=== PATIENT | male | born 1985 | race Caucasian/White ===

== ENCOUNTER → 2022-07-15 10:21 | Outpatient (CLI) | payer OTHER, SELFPAY | DX: R53.1 Weakness (principal) | CPT/HCPCS: 95886; 95910 ==

== ENCOUNTER → 2022-11-25 08:41 | Outpatient (CLI) | payer OTHER, SELFPAY ==
--- NOTE | 2022-11-25 | DI.MRI.S_ITS ---
PROCEDURE: MR ANKLE RT WO CON INDICATIONS: Pain in right ankle and joints of right foot TECHNIQUE: Noncontrast sagittal T1 spin echo and T2 fast spin echo with fat saturation, axial proton density fast spin echo and T2 fast spin echo with fat saturation, coronal T1 spin echo and T2 fast spin echo with fat saturation through the ankle/hindfoot. COMPARISON: None. FINDINGS: Image quality: Excellent. Bones and joints: No bone marrow contusions or fractures. No hindfoot coalitions. No osteochondral injuries of the talar dome. No pathologic joint effusions. There is some moderate thickening of the peroneus longus tendon at the lateral malleolus with some increased signal present consistent with some moderate tendinopathy. There is also some mild to moderate tenosynovitis involving the peroneus brevis and longus tendons. Remaining ankle ligaments and tendons appear intact. Anterior structures: The tibialis anterior, extensor hallucis longus, and extensor digitorum longus tendons appear intact. The dorsal talonavicular ligament appears intact. Posterior and plantar structures: Achilles tendon is intact. Medial and lateral bands of the plantar fascia are of normal thickness. No abductor digiti quinti muscle atrophy to suggest French neuropathy. IMPRESSION: 1. Moderate thickening and increased signal within the peroneus brevis tendon at the lateral malleolus most consistent with tendinopathy. 2. Mild to moderate tenosynovitis involving brevis and longus tendons. 3. There is some [id number] nonspecific edema in the subcutaneous tissues of the lateral foot adjacent to the 5th metatarsal incompletely visualized of uncertain clinical significance. Dictated by: Jay Esparza M.D. on 11/25/2022 at 11:00 Approved by: Jay Esparza M.D. on 11/25/2022 at 11:10
== END ==
PROVIDERS: Referring Provider Podiatrist; Visit Provider Podiatrist
DX: M25.371 Other instability, right ankle (principal); M65.871 Other synovitis and tenosynovitis, right ankle and foot; M25.571 Pain in right ankle and joints of right foot
CPT/HCPCS: 73721

== ENCOUNTER → 2023-10-28 11:44 | Outpatient (CLI) | payer OTHER, SELFPAY ==
--- NOTE | 2023-10-28 11:47 | DI.RAD.S_ITS ---
PROCEDURE: XR CHEST 2V INDICATIONS: CHEST PAIN TECHNIQUE: 2 views of the chest were acquired. COMPARISON: None. FINDINGS: Surgical changes and devices: None. Lungs and pleura: Lungs are clear. No pleural effusions or pneumothorax. Mediastinum: Mediastinal contours are normal. Heart size is normal. Bones and chest wall: No suspicious bony abnormalities. Soft tissues appear unremarkable. IMPRESSION: No acute cardiopulmonary abnormality is seen. Approved by: Jc Dove M.D. on 10/28/2023 at 12:50
== END ==
PROVIDERS: Referring Provider Chiropractor; Visit Provider Chiropractor
DX: R07.1 Chest pain on breathing (principal)
CPT/HCPCS: 71046